=== PATIENT | male | born 1975 | race Caucasian/White ===

== ENCOUNTER 2019-02-11 09:38 | Emergency (ER) | payer OTHER ==
[~2019-02-11] VITALS: Ht 167.6 cm; Wt 145.7 kg
[~2019-02-11 09:38] MED LIST: BONINE25 MG PO; CLEOCIN HCL300 MG PO; HYDROCHLOROTHIA25 M2; LISINOPRIL2.5 MG; MECLIZINE HCL25 M1 PO; NORCO 5-325 TA1 EACH PO; PHENERGAN 25 MG25 MG PO; ZOFRAN 4 MG ORAL4 M1 DIS
[2019-02-11 09:56] LABS: HEMATOCRIT 49.1 % (42.0-52.0); HEMOGLOBIN 16.8 gm/dL (14.0-18.0); MCH 31.3 pg (26.0-34.0); MCHC 34.2 g/dL (28.0-37.0); MCV 91.6 fL (80.0-100.0); MPV 8.7 fl. (7.2-11.1); RBC 5.36 mil/uL (4.50-6.00); RDW-CV 13.4 % (10.5-14.5); WBC 7.8 thou/uL (4.0-11.0)
[2019-02-11 10:05] LABS: CALCIUM 9.5 mg/dL (8.5-10.1); CREATININE 1.1 mg/dL (0.6-1.3); POTASSIUM 4.1 mmol/L (3.5-5.1)
[2019-02-11 10:09] LABS: ALBUMIN 4.2 g/dL (3.4-5.0); TOTAL BILIRUBIN 0.3 mg/dL (<0.1-1.0); TOTAL PROTEIN 8.3 g/dL (6.4-8.2)
[2019-02-11 10:17] LABS: APTT 32.2 Seconds (25.0-31.3); PROTIME 10.2 Seconds (9.20-11.50)
[2019-02-11 10:23] LABS: ACETAMINOPHEN < 2 ug/mL (10-30); ALCOHOL < 10 mg/dL (<10); SALICYLATE < 2.8 mg/dL (2.8-20.0)
[2019-02-11 10:34] VITALS: BP 162/92
--- NOTE | 2019-02-12 14:52 | EKG ---
[place] [address] ELECTROCARDIOGRAM REPORT Name: CHUCK SEN Room: [facility]#: [id number] Admission: 02/11/19 Attend Phys: Discharge: 02/11/19 Date of : 73 Report #: [id number] THIS REPORT FOR: //name// [facility] ED Test Date: 2019-02-11 Test Time: 09:44:12 Pat Name: CHUCK SEN Department: Room: Gender: M Direct Care Supervisor: [place] : 1975 Requested By: Wiley Gee Order Number: [id number] MD: Torin Hagan Measurements Intervals [place] Rate: 82 P: 38 TN: 196 QRS: -22 QRSD: 102 T: 46 QT: 382 QTc: 446 Interpretive Statements Sinus rhythm Left atrial enlargement Borderline left axis deviation Probable anteroseptal infarct, recent Baseline wander in lead(s) III Compared to ECG 03/05/2013 18:59:35 Atrial abnormality now present Myocardial infarct finding now present Sinus arrhythmia no longer present Electronically Signed On 02-12-2019 14:52:29 CDT by Torin Hagan [email or web address] <ELECTRONICALLY SIGNED> By: Torin Hagan MD, [facility] 02/12/19 1452 0944 0944 Torin Hagan MD, [facility] /EPI
== END 2019-02-11 10:54 | disposition home or self-care (01) ==
LOC: M.ERS 09:38
PROVIDERS: Emergency Medicine
DX: I61.4 Nontraumatic intracerebral hemorrhage in cerebellum (principal); I10 Essential (primary) hypertension; F17.210 Nicotine dependence, cigarettes, uncomplicated; Z90.49 Acquired absence of other specified parts of digestive tract; Z91.010 Allergy to peanuts; Z88.0 Allergy status to penicillin; Z91.018 Allergy to other foods